=== PATIENT | male | born 1990 | race Two or more races ===

== ENCOUNTER 2018-06-22 13:00 | Emergency (ER) | payer MEDICAID ==
[~2018-06-22] VITALS: Ht 182.9 cm; Wt 90.7 kg
[2018-06-22] MEDS ORDERED: NKM (13:13)
[2018-06-22 14:00] VITALS: BP 126/84
[2018-06-22] MEDS ORDERED: IBUPROFEN600 MG ORAL (14:23)
[2018-06-22] MEDS ORDERED: CORTISPORIN EAR10 ML LEFT EAR (14:23)
[2018-06-22] MEDS ORDERED: AUGMENTIN 500-1 EACH ORAL (14:23)
[2018-06-22] MEDS ORDERED: Cortisporin OTIC Susp - 10ml LEFT EAR ONE (14:30)
[2018-06-22 14:40] VITALS: BP 126/84
--- NOTE | 2018-06-22 17:32 | Emergency Room Report ---
History of Present Illness General Chief Complaint: Earache Source: Patient Present Illness HPI The patient is a 27-year-old male presenting for left ear pain. This began approximately one week prior. After onset of symptoms, the patient used a home remedy which includes oil and onion juice to attempt to ease the pain. This made it worse. Pain is now a 9 out of 10 dull ache and does not radiate from the left ear. Worse with touch. He does have decreased hearing. He has noticed some discharge. He denies other symptoms including fever, chills, dizziness, sore throat Allergies: Coded Allergies: No Known Allergies (Unverified , 06/22/18) Patient History Past Medical History: see triage record Pertinent Family History: none Reviewed Nursing Documentation: PMH: Agreed; PSxH: Agreed Nursing Documentation-PMH Past Medical History: No Stated History Review of Systems All Other Systems: negative except mentioned in HPI Physical Exam Vital Signs Date Time Temp Pulse Resp B/P (MAP) Pulse Ox O2 Delivery O2 Flow Rate FiO2 06/22/18 13:08 97.3 83 16 95 Room Air 06/22/18 14:00 126/84 Sp02 EP Interpretation: reviewed, normal Head: normocephalic, atraumatic Eyes: bilateral eye normal inspection, bilateral eye PERRL ENT: hearing grossly normal, normal pharynx, no angioedema, normal voice, uvula midline, other - L EAC erythema and white DC Neck: full range of motion, supple/symm/no masses Respiratory: chest non-tender, lungs clear, normal breath sounds, speaking full sentences Neurologic: alert, oriented x3, responsive, motor strength/tone normal, sensory intact, speech normal Psychiatric: judgement/insight normal, memory normal, mood/affect normal, no suicidal/homicidal ideation Skin: normal color, no rash, warm/dry, well hydrated Lymphatic: no adenopathy Medical Decision Making PA Attestation Dr. Stout is my supervising physician. Patient management was discussed with my supervising physician Diagnostic Impression: Primary Impression: Otitis externa Qualified Codes: H60.502 - Unspecified acute noninfective otitis externa, left ear Additional Impression: Otitis media Qualified Codes: H66.90 - Otitis media, unspecified, unspecified ear ER Course The patient is a 27-year-old male presenting for left ear pain Differential diagnosis include but not limited to otitis externa, otitis media, mastoiditis, sinusitis, pharyngitis Physical exam: Afebrile. No apparent distress There is evident white discharge from the left external auditory canal. There is tenderness to palpation. The patient will be treated with pain medication, Cortisporin, as well as oral antibiotics for suspected otitis media The patient is told to follow-up with primary doctor as soon as possible. He is told to not insert anything else into the ears. ER precautions are given Last Vital Signs Date Time Temp Pulse Resp B/P (MAP) Pulse Ox O2 Delivery O2 Flow Rate FiO2 06/22/18 14:40 97.3 06/22/18 14:40 78 16 126/84 95 Room Air Status: improved Disposition: HOME, SELF-CARE Condition: Improved Scripts Amoxicillin/Potassium Clav 500-125 Tablet* (AUGMENTIN 500-125 TABLET*) 1 Each Tablet 1 TAB ORAL Q12HR, #20 TAB Prov: VICENTE ARZOLA P.A. 06/22/18 Neomycin/Polymyxin B Sulf/Hc* (CORTISPORIN EAR SOLUTION*) 10 Ml Solution 4 DROP LEFT EAR QID, #10 ML 0 Refills Prov: LEONELAANVICENTE P.A. 06/22/18 Ibuprofen* (MOTRIN*) 600 Mg Tablet 600 MG ORAL Q8H PRN for For Pain, #30 TAB 0 Refills Prov: LEONELAANVICENTE P.A. 06/22/18 Referrals: [facility],REFERR[facility] (PCP) Patient Instructions: Otitis Externa, Otitis Media, Adult Additional Instructions: I discussed my findings with the patient. All questions and concerns have been answered. Treatment and medication compliance have been addressed. I advised the patient that they need to follow up with PMD in 3-5 days. Return to ED if symptoms worsen, new symptoms arise, or if needed for any reason. Patient verbalized understanding of discharge instructions. VICENTE ARZOLA June 22, 2018 17:32
== END 2018-06-22 16:09 | disposition home or self-care (01) ==
LOC: EMR 13:26
DX: H60.502 Unspecified acute noninfective otitis externa, left ear (principal); H66.90 Otitis media, unspecified, unspecified ear
CPT/HCPCS: 99283

== ENCOUNTER 2018-07-29 03:51 | Emergency (ER) | payer MEDICAID ==
[~2018-07-29] VITALS: Ht 185.4 cm; Wt 99.8 kg
[~2018-07-29 03:51] MED LIST: AUGMENTIN 500-1 EACH ORAL; CORTISPORIN EAR10 ML LEFT EAR; IBUPROFEN600 MG ORAL; NKM
[2018-07-29 03:56] VITALS: BP 128/85
--- NOTE | 2018-07-29 03:59 | NUR ---
ED Nurse Note: Patient BIBA from home due to chest pain, and substance abuse. Per patient he userd THC and meth. AAO x1, lethargic, diaforetic. Patient's HR is 52 upon arrival, other VSS at this time.
--- NOTE | 2018-07-29 04:04 | Emergency Room Report ---
History of Present Illness General Chief Complaint: Chest Pain Source: Patient Present Illness HPI This is a 27-year-old male with medical history. He presents with chief complaint of chest pain and nausea vomiting. Unable to get a history from this patient because of his intoxication. History is through EMS who got it from his uncle. He woke up with his family complaining of feeling nauseous and having chest pain. Afterward he had vomiting and family called 911. Patient was drinking heavily tonight and also smokes some crystal methamphetamine. Denies any other complaint. Unable to get any history because of his intoxication. Allergies: Coded Allergies: No Known Allergies (Unverified , 06/22/18) Patient History Past Medical History: see triage record, old chart reviewed Past Surgical History: none Pertinent Family History: none Social History: Reports: alcohol use, drug use Immunizations: other Reviewed Nursing Documentation: PMH: Agreed; PSxH: Agreed Nursing Documentation-PMH Past Medical History: No Stated History Review of Systems Eye: Denies: eye pain, blurred vision ENT: Denies: ear pain, nose congestion, throat swelling Respiratory: Denies: cough, shortness of breath Cardiovascular: Reports: chest pain; Denies: palpitations Gastrointestinal: Reports: nausea, vomiting; Denies: abdominal pain, diarrhea Musculoskeletal: Denies: back pain, joint pain Skin: Denies: rash Neurological: Denies: headache, numbness Endocrine: Denies: increased thirst, increased urine Hematologic/Lymphatic: Denies: easy bruising All Other Systems: negative except mentioned in HPI Physical Exam Vital Signs Date Time Temp Pulse Resp B/P (MAP) Pulse Ox O2 Delivery O2 Flow Rate FiO2 07/29/18 03:49 59 13 128/85 (99) 96 Room Air Vitals normal Sp02 EP Interpretation: reviewed, normal General Appearance: well appearing, no apparent distress, Stupor - Intoxicated Head: normocephalic, atraumatic Eyes: bilateral eye PERRL, bilateral eye EOMI ENT: hearing grossly normal, normal pharynx Neck: full range of motion, supple, no meningismus Respiratory: chest non-tender, lungs clear, normal breath sounds Cardiovascular #1: regular rate, rhythm, no murmur Gastrointestinal: normal bowel sounds, non tender, no mass, no organomegaly, no bruit, non-distended Musculoskeletal: back normal, normal range of motion Neurologic: grossly normal Psychiatric: mood/affect normal Skin: warm/dry Medical Decision Making Diagnostic Impression: Primary Impression: Alcohol intoxication Qualified Codes: F10.920 - Alcohol use, unspecified with intoxication, uncomplicated Additional Impression: Substance abuse ER Course Patient presents with epigastric pain with vomiting. He admits to using methamphetamine and alcohol yesterday. He is feeling better now. He has family to call 911 because he was feeling very nauseous and had copious amount of vomiting. Afterward he felt dizzy and diaphoretic. He is better now. No evidence of ACS, PE, dissection. Abdominal exam is benign. Will discharge home. EKG Diagnostic Results Rate: normal Rhythm: NSR ST Segments: no acute changes Rhythm Strip Diag. Results EP Interpretation: yes Rate: 62 Rhythm: NSR, no PVC's, no ectopy Last Vital Signs Date Time Temp Pulse Resp B/P (MAP) Pulse Ox O2 Delivery O2 Flow Rate FiO2 07/29/18 03:56 59 13 Room Air 07/29/18 03:56 128/85 96 Status: improved Disposition: HOME, SELF-CARE Condition: Stable Additional Instructions: Abstain from drugs and alcohol. Follow-up with your doctor in 7 days. Return if worse. Brent Caballero MD Jul 29, 2018 04:04
[2018-07-29 05:45] VITALS: BP 128/85
--- NOTE | 2018-07-29 05:47 | NUR ---
ER DISCHARGE NOTE: Patient is cleared to be discharged per ERMD, pt is aox4, on room air, with stable vital signs. pt was given dc and prescription instructions, pt was able to verbalize understanding, pt id band and iv site removed without complications. pt is able to ambulate with steady gait. pt took all belongings.
--- NOTE | 2018-07-31 21:09 | Cardiology Report ---
APPROVED REPORT EKG Measurement Heart [id number] Sinus bradycardia Incomplete left bundle branch block Borderline ECG
== END 2018-07-29 05:47 | disposition home or self-care (01) ==
LOC: EDBD 03:51 → EMR 04:04
DX: F10.920 Alcohol use, unspecified with intoxication, uncomplicated (principal); F19.10 Other psychoactive substance abuse, uncomplicated; R11.2 Nausea with vomiting, unspecified
CPT/HCPCS: 36415; 80329; 93005; 96361; 96374; 99284; J2405

== ENCOUNTER 2018-08-09 11:48 | Emergency (ER) | payer MEDICAID ==
[~2018-08-09] VITALS: Ht 188 cm; Wt 90.7 kg
[2018-08-09] MEDS ORDERED: NKM (12:00)
--- NOTE | 2018-08-09 12:04 | NUR ---
ED Nurse Note: Patient walked into ED c/o blurry vision bilateral eyes and pain in the right eye x 1 week. patient is wearing eye glasses. reports no injury.
[2018-08-09 12:14] VITALS: BP 128/78
[2018-08-09] MEDS ORDERED: Fluorescein Strips RIGHT EYE ONE (12:15)
[2018-08-09] MEDS ORDERED: Tetracaine 0.5% Opth 4ml Soln RIGHT EYE ONE (12:15)
--- NOTE | 2018-08-09 13:43 | Emergency Room Report ---
History of Present Illness General Chief Complaint: Eye Problems Source: Patient Present Illness HPI 29 YO male presents to the ED c/o 07/29 in severity blurry vision, right eye pain, and "darkness in to the side of his eye" Pt. denies eye trauma, hx of glaucoma,HTN or DM. Pt. reports he wears corrective lenses and at first thought it was his new glasses. Denies: Discharge, Redness, Flashing lights, or Increased tearing. Reports symptoms are aggravated when he gets "agitated". Allergies: Coded Allergies: No Known Allergies (Unverified , 06/22/18) Patient History Past Medical History: see triage record Past Surgical History: none Pertinent Family History: none Now: No Reviewed Nursing Documentation: PMH: Agreed; PSxH: Agreed Nursing Documentation-PMH Past Medical History: No Stated History Review of Systems All Other Systems: negative except mentioned in HPI Physical Exam Vital Signs Date Time Temp Pulse Resp B/P (MAP) Pulse Ox O2 Delivery O2 Flow Rate FiO2 08/09/18 11:56 97.9 80 16 131/90 (104) 98 Room Air Sp02 EP Interpretation: reviewed, normal General Appearance: no apparent distress, alert, GCS 15, non-toxic Head: normocephalic, atraumatic Eyes: right eye other - lateral visual field and Superior temporal visual field is moderately reduced. ; bilateral eye normal inspection, bilateral eye PERRL, bilateral eye visual acuity - 20/40 ENT: hearing grossly normal, normal voice Neck: full range of motion Respiratory: lungs clear, normal breath sounds, speaking full sentences Cardiovascular #1: regular rate, rhythm Musculoskeletal: back normal, gait/station normal, normal range of motion, non- tender Neurologic: alert, oriented x3, responsive, motor strength/tone normal, sensory intact, speech normal, grossly normal Psychiatric: judgement/insight normal Skin: normal color, no rash, warm/dry, well hydrated Medical Decision Making PA Attestation Dr. De La O Is my supervising Physician whom patient management has been discussed with. Diagnostic Impression: Primary Impression: Retinal detachment, right ER Course 29 YO male presents to the ED c/o 07/29 in severity blurry vision, right eye pain, and "darkness in to the side of his eye" Pt. denies eye trauma, hx of glaucoma,HTN or DM. Pt. reports he wears corrective lenses and at first thought it was his new glasses. Denies: Discharge, Redness, Flashing lights, or Increased tearing. Reports symptoms are aggravated when he gets "agitated". Ddx considered but are not limited to: corneal abrasion, acute glaucoma, globe rupture, FB, Corneal Ulcer, conjunctivitis. Iridis Vital signs: are WNL, pt. is afebrile H&PE are most consistent with: corneal abrasion ORDERS: -Tetracaine and Fluorescein Stain of the Right eye: -No Increase fluorescein uptake. Negative Brit sign. there was negative evidence of Fb, deep ulcer, or rupture. - [place] : iop average of 16 - [place]: * Retinal detachment ED INTERVENTIONS: none at this time. --D/w store keeper consult Dr. Hough who agreed to see the pt. at his office tomorrow morning at 9:30am DISCHARGE: At this time pt. is stable for d/c to home. Will provide printed patient care instructions, and any necessary prescriptions. Care plan and follow up instructions have been discussed with the patient prior to discharge. . Last Vital Signs Date Time Temp Pulse Resp B/P (MAP) Pulse Ox O2 Delivery O2 Flow Rate FiO2 08/09/18 12:14 97.9 79 18 128/78 99 Room Air Disposition: HOME, SELF-CARE Condition: Stable Scripts Acetaminophen* (TYLENOL EXTRA STRENGTH*) 500 Mg Tablet 500 MG ORAL Q6H, #20 TAB 0 Refills Prov: Nelida Lacey 08/09/18 Referrals: NON PHYSICIAN (PCP) Osito Hough M.D., MD Patient Instructions: Retinal Detachment Additional Instructions: Take medications as directed. Follow up with DR. HOUGH 08/10/18 at 9:30am Return sooner to ED if new symptoms occur, or current symptoms become worse. - Please note that this Emergency Department Report was dictated using [employer] technology software, occasionally this can lead to erroneous entry secondary to interpretation by the dictation equipment. Nelida Lacey Aug 09, 2018 13:43
[2018-08-09] MEDS ORDERED: TYLENOL EXTRA500 MG ORAL (13:45)
--- NOTE | 2018-08-09 14:10 | NUR ---
ER DISCHARGE NOTE: Patient is cleared to be discharged per ROGERS HYDE, pt is aox4, on room air, with stable vital signs. pt was given dc and prescription instructions, pt was able to verbalize understanding, pt id band removed without complications. pt is able to ambulate with steady gait. patient verbalized understanding to follow up with Dr. Hough tomorrow in the morning. phonenumber and address to Dr. Hough's office given. pt took all belongings.
[2018-08-09 14:12] VITALS: BP 128/78
== END 2018-08-09 14:02 | disposition home or self-care (01) ==
LOC: EMR 12:34
DX: H33.21 Serous retinal detachment, right eye (principal)
CPT/HCPCS: 99282

== ENCOUNTER 2018-11-09 18:15 | Emergency (ER) | payer MEDICAID ==
[~2018-11-09] VITALS: Ht 188 cm; Wt 90.7 kg
[~2018-11-09 18:15] MED LIST changes: +TYLENOL EXTRA500 MG ORAL
[2018-11-09 18:24] VITALS: BP 147/97
--- NOTE | 2018-11-09 18:24 | NUR ---
ED Nurse Note: Patient walked in c/o right eye pain with vision changes x 2 months; denies discharge. Pt rates pain at 5/10. Patient reports previous [facility] ER visit and referred to title specialist for retinal detachment of rt eye. Pt is A&O x4, V/S stable with no s/s of acute distress noted at this time. ERMD at bedside evaluating the pt.
[2018-11-09] MEDS ORDERED: Fluorescein Strips BOTH EYES ONE (18:30)
[2018-11-09] MEDS ORDERED: Tetracaine 0.5% Opth 4ml Soln LEFT EYE ONE (18:30)
--- NOTE | 2018-11-09 18:48 | Emergency Room Report ---
History of Present Illness General Chief Complaint: Eye Problems Source: Patient Present Illness HPI 28-year-old male presents with syncopal-like symptoms prior to arrival, lasting minutes, patient thinks he fainted, with rapid resolution to consciousness, patient is concerned because he has a right eye retinal detachment that he did not have repaired, he states he was to have a repaired a few months ago however he tested positive for cocaine and anesthesia refused to do the sedation, patient is worried that he will not be able to see again. Patient states he is 3 months out from possible repair. Patient denies any chest pain shortness of breath, no abdominal pain patient presents for evaluation Allergies: Coded Allergies: No Known Allergies (Unverified , 06/22/18) Patient History Past Medical History: see triage record Reviewed Nursing Documentation: PMH: Agreed; PSxH: Agreed Nursing Documentation-PMH Past Medical History: No Stated History Review of Systems Constitutional: Denies: chills, fever Eye: Reports: blurred vision; Denies: double vision ENT: Denies: throat pain, nasal discharge Respiratory: Denies: cough, shortness of breath Cardiovascular: Denies: chest pain, palpitations Gastrointestinal: Denies: abdominal pain, diarrhea, nausea, vomiting Genitourinary: Denies: dysuria, pain Musculoskeletal: Denies: back pain, muscle pain Skin: Denies: rash, lesions Neurological: Denies: headache, focal weakness Hematologic/Lymphatic: Denies: easy bleeding, easy bruising All Other Systems: negative except mentioned in HPI Physical Exam Vital Signs Date Time Temp Pulse Resp B/P (MAP) Pulse Ox O2 Delivery O2 Flow Rate FiO2 11/09/18 18:24 97.9 85 19 147/97 (114) 98 Room Air Sp02 EP Interpretation: reviewed, normal General Appearance: well appearing, no apparent distress, alert Head: normocephalic, atraumatic Eyes: right eye visual acuity - No visual acuity of the right eye, right eye other - Right eye ultrasound shows retinal detachment; bilateral eye PERRL, bilateral eye EOMI ENT: uvula midline, moist mucus membranes Neck: supple, thyroid normal, supple/symm/no masses Respiratory: lungs clear, no respiratory distress, no retraction, no accessory muscle use Cardiovascular #1: normal peripheral pulses, regular rate, rhythm, no edema, no gallop, no murmur Gastrointestinal: non tender, soft, no guarding, no rebound Musculoskeletal: normal inspection Neurologic: alert, oriented x3 Psychiatric: no suicidal/homicidal ideation, anxious Skin: no rash, warm/dry Medical Decision Making Diagnostic Impression: Primary Impression: Syncope Qualified Codes: R55 - Syncope and collapse Additional Impressions: Retinal detachment Qualified Codes: 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 Patient is 3 months out from his retinal detachment. Patient counseled that he needs to follow-up with optho. US shows the same retinal detachment from previous hospital visit. Patient with syncope as well, + Tox screen, neg cxr and neg ekg Patient also wants STD treatment, counseled patient to follow-up with PCP for STD check Counseled patient on drug use and to also follow-up with optho for further treatment and evaluation. Strict return precautions discussed. Laboratory Tests Test 11/09/18 18:50 11/09/18 19:00 Urine Opiates Screen Negative (NEGATIVE) Urine Barbiturates Screen Negative (NEGATIVE) Phencyclidine (PCP) Screen Negative (NEGATIVE) Urine Amphetamines Screen Positive (NEGATIVE) H Urine Benzodiazepines Screen Negative (NEGATIVE) Urine Cocaine Screen Negative (NEGATIVE) Urine Marijuana (THC) Screen Positive (NEGATIVE) H White Blood Count 7.7 K/UL (4.8-10.8) Red Blood Count 5.46 M/UL (4.70-6.10) Hemoglobin 16.5 G/DL (14.2-18.0) Hematocrit 47.7 % (42.0-52.0) Mean Corpuscular Volume 87 FL (80-99) Mean Corpuscular Hemoglobin 30.2 PG (27.0-31.0) Mean Corpuscular Hemoglobin Concent 34.5 G/DL (32.0-36.0) Red Cell Distribution Width 10.5 % (11.6-14.8) L Platelet Count 301 K/UL (150-450) Mean Platelet Volume 6.6 FL (6.5-10.1) Neutrophils (%) (Auto) 67.3 % (45.0-75.0) Lymphocytes (%) (Auto) 21.2 % (20.0-45.0) Monocytes (%) (Auto) 8.6 % (1.0-10.0) Eosinophils (%) (Auto) 1.5 % (0.0-3.0) Basophils (%) (Auto) 1.4 % (0.0-2.0) Sodium Level 140 MMOL/L (136-145) Potassium Level 3.8 MMOL/L (3.5-5.1) Chloride Level 104 MMOL/L (98-107) Carbon Dioxide Level 26 MMOL/L (21-32) Anion Gap 10 mmol/L (5-15) Blood Urea Nitrogen 11 mg/dL (7-18) Creatinine 1.2 MG/DL (0.55-1.30) Estimate Glomerular Filtration Rate > 60 mL/min (>60) Glucose Level 112 MG/DL (74-106) H Calcium Level 9.2 MG/DL (8.5-10.1) Total Bilirubin 0.6 MG/DL (0.2-1.0) Aspartate Amino Transferase (AST) 27 U/L (15-37) Alanine Aminotransferase (ALT) 37 U/L (12-78) Alkaline Phosphatase 72 U/L (46-116) Troponin I 0.000 ng/mL (0.000-0.056) Total Protein 7.9 G/DL (6.4-8.2) Albumin 4.2 G/DL (3.4-5.0) Globulin 3.7 g/dL Albumin/Globulin Ratio 1.1 (1.0-2.7) Lipase 82 U/L (73-393) EKG Diagnostic Results EKG Time: 18:40 EP Interpretation: NSR, rate 86 qtc 402, no acute st elevations normal axis Chest X-Ray Diagnostic Results Chest X-Ray Diagnostic Results : Chest X-Ray Ordered: Yes # of Views/Limited/Complete: 1 View Indication: Other - syncope EP Interpretation: Yes Interpretation: no consolidation, no effusion, no pneumothorax, no acute cardiopulmonary disease Impression: No acute disease Electronically Signed by: Jason Norton MD Last Vital Signs Date Time Temp Pulse Resp B/P (MAP) Pulse Ox O2 Delivery O2 Flow Rate FiO2 11/09/18 18:24 97.9 85 19 147/97 (114) 98 Room Air Disposition: HOME, SELF-CARE Condition: Stable Referrals: Osito Hough M.D., MD [facility] Patient Instructions: Retinal Detachment, Stimulant Use Disorder-Amphetamines, Syncope, [id number] Additional Instructions: The patient was provided with discharge instructions, notified to follow-up with a primary care doctor and or specialist in the next 24-48 hours, and to return to the ED if they have worsening of their symptoms. Please note that this report is being documented using DRAGON technology. This can lead to erroneous entry secondary to incorrect interpretation by the dictating instrument. FOLLOW-UP WITH [facility]TH[facility] Jason Orourke MD Nov 09, 2018 18:48
--- NOTE | 2018-11-09 18:53 | Diagnostic Imaging Report ---
EXAM: XR Chest, 1 View CLINICAL HISTORY: SYNCOPE TECHNIQUE: Frontal view of the chest. COMPARISON: No relevant prior studies available. FINDINGS: Lungs: Low lung volumes with bronchovascular crowding. No consolidation, pleural effusion, or pneumothorax. Pleural space: See above. Heart: Unremarkable. No cardiomegaly. Mediastinum: Unremarkable. Bones joints: Unremarkable. IMPRESSION: 1. Low lung volumes with bronchovascular crowding. 2. Otherwise no acute cardio pulmonary disease. 3. If there is continued concern, recommend PA and lateral chest radiographs.
[2018-11-09] MEDS ORDERED: Azithromycin 250mg tab ORAL ONE (19:00)
--- NOTE | 2018-11-09 19:05 | NUR ---
ED Nurse Note: Patient UA and Blood sent down to the lab.
[2018-11-09 19:19] LABS: BASOPHILS % (AUTO) 1.4 % (0.0-2.0); EOSINOPHILS % (AUTO) 1.5 % (0.0-3.0); HEMATOCRIT 47.7 % (42.0-52.0); HEMOGLOBIN 16.5 G/DL (14.2-18.0); LYMPHOCYTES % (AUTO) 21.2 % (20.0-45.0); MEAN CORPUSCULAR VOLUME 87 FL (80-99); MONOCYTES % (AUTO) 8.6 % (1.0-10.0); NEUTROPHILS % (AUTO) 67.3 % (45.0-75.0); PLATELET COUNT 301 K/UL (150-450); RED BLOOD COUNT 5.46 M/UL (4.70-6.10); RED CELL DISTRIBUTION WIDTH 10.5 % (11.6-14.8); WHITE BLOOD COUNT 7.7 K/UL (4.8-10.8)
[2018-11-09 19:22] LABS: ANION GAP 10 mmol/L (5-15); BLOOD UREA NITROGEN 11 mg/dL (7-18); CALCIUM 9.2 MG/DL (8.5-10.1); CARBON DIOXIDE 26 MMOL/L (21-32); CHLORIDE 104 MMOL/L (98-107); CREATININE 1.2 MG/DL (0.55-1.30); POTASSIUM 3.8 MMOL/L (3.5-5.1); SODIUM 140 MMOL/L (136-145)
[2018-11-09 19:26] LABS: ALANINE AMINOTRANSFERASE 37 U/L (12-78); ALBUMIN 4.2 G/DL (3.4-5.0); ALBUMIN/GLOBULIN RATIO 1.1 (1.0-2.7); ALKALINE PHOSPHATASE 72 U/L (46-116); ASPARTATE AMINO TRANSFERASE 27 U/L (15-37); BILIRUBIN,TOTAL 0.6 MG/DL (0.2-1.0)
[2018-11-09] MEDS ORDERED: Acetaminophen 500mg (ES) tab ORAL ONE (19:45)
[2018-11-09 19:52] VITALS: BP 141/81
--- NOTE | 2018-11-09 19:52 | NUR ---
ER DISCHARGE NOTE: Patient is cleared to be discharged per ERMD, pt is aox4, on room air, with stable vital signs. pt was given dc instructions, pt was able to verbalize understanding, pt id band and iv site removed without complications. pt is able to ambulate with steady gait. pt took all belongings.
--- NOTE | 2018-11-10 17:17 | Cardiology Report ---
APPROVED REPORT EKG Measurement Heart [id number] [id number] Normal sinus rhythm Early repolarization Normal ECG
== END 2018-11-09 19:52 | disposition home or self-care (01) ==
LOC: EMR 18:34
DX: R55 Syncope and collapse (principal); H33.21 Serous retinal detachment, right eye; F15.10 Other stimulant abuse, uncomplicated
CPT/HCPCS: 36415; 71045; 80053; 80307; 83690; 84484; 85025; 93005; 96374; J0696; Q0144; Z7502; 99284